=== PATIENT | female | born 1995 | race Caucasian/White ===

== ENCOUNTER 2017-02-12 16:38 | Inpatient (IN) | payer MEDICAID, OTHER ==
[~2017-02-12] VITALS: Ht 167.6 cm; Wt 61.5 kg
[~2017-02-12 16:38] MED LIST: ACET50TA PO; BUSP10TA PO; CELE10TA PO; CELE20TA PO; IBUP600T26 PO; IBUP80TA PO; PRED5PAK PO; PRENTAB13 PO; PRENTAB74 PO; SING5CHW PO; TRAZ50TA4 PO; TRAZO50TA FT; TUMS500C PO; VITAPRTA PO
[2017-02-12] MEDS ORDERED: EFFE37.527 PO (17:05)
[2017-02-12] MEDS ORDERED: MAALOX 30 ML SUSP *UDC PO PRN (17:15)
[2017-02-12] MEDS ORDERED: MOM 30ML SUSPENSION UDC PO PRN (17:15)
[2017-02-12 17:39] LABS: MEAN CORPUSCULAR HEMOGLOBIN 28.1 pg (27.0-33.0); MEAN CORPUSCULAR HGB CONC 33.9 g/dl (32.0-36.5); MEAN CORPUSCULAR VOLUME 82.8 fl (80.0-96.0); RED CELL DISTRIBUTION WIDTH 12.2 % (11.5-14.5); WHITE BLOOD COUNT 8.4 K/mm3 (4.0-10.0)
[2017-02-12 17:42] LABS: CONTROL LINE HCG INT CTR LINE PRESENT
[2017-02-12 17:48] LABS: METHADONE URINE NEGATIVE (NEGATIVE)
[2017-02-12 17:58] LABS: ALBUMIN 3.9 GM/DL (3.2-5.2); ALBUMIN/GLOBULIN RATIO 1.15 (1.00-1.93); ALKALINE PHOSPHATASE 113 U/L (45-117); ALT/SGPT 20 U/L (12-78); ANION GAP 7 MEQ/L (8-16); AST/SGOT 7 U/L (15-37); BILIRUBIN,DIRECT 0.2 MG/DL (0.0-0.2); BILIRUBIN,TOTAL 0.5 MG/DL (0.2-1.0); BLOOD UREA NITROGEN 10 MG/DL (7-18); CALCIUM LEVEL 8.6 MG/DL (8.5-10.1); CARBON DIOXIDE LEVEL 26 MEQ/L (21-32); CHLORIDE LEVEL 109 MEQ/L (98-107); CREATININE FOR GFR 0.93 MG/DL (0.55-1.02); GLOMERULAR FILTRATION RATE > 60.0 (>60); GLUCOSE, FASTING 86 MG/DL (70-105); POTASSIUM SERUM 3.6 MEQ/L (3.5-5.1); SODIUM LEVEL 142 MEQ/L (136-145); TOTAL PROTEIN 7.3 GM/DL (6.4-8.2)
[2017-02-12 18:32] VITALS: BP 119/67
[2017-02-12] MEDS ORDERED: TRAZ50TA4 PO (18:32)
[2017-02-13 06:05] VITALS: BP 88/50
--- NOTE | 2017-02-13 07:29 | ECGEPIP ---
Stationary ECG Study [facility] - ED Test Date: 2017-02-12 Pat Name: RISA ALVAREZ Department: Room: - Gender: F Lung Puller: DEYANIRA : 1995 Requested By: EVE Thurman Order Number: [id number] Reading MD: Cristin Cunha Measurements Intervals [place] Rate: 70 P: 38 LA: 146 QRS: 71 QRSD: 89 T: 48 QT: 370 QTc: 400 Interpretive Statements SINUS RHYTHM WITH MARKED SINUS ARRHYTHMIA SIMILAR 07/05/14 Electronically Signed On 02-13-2017 7:29:19 EDT by Cristin Cunha
[2017-02-13] MEDS: ACETAMINOPHEN TAB 650MG DOSE (2X325MG) PO PRN (12:43)
[2017-02-13 18:02] VITALS: BP 100/52
--- NOTE | 2017-02-13 22:08 | MHHPE ---
DATE OF ADMISSION: 02/12/2017 DATE OF EVALUATION: 02/13/2017 HISTORY OF PRESENT ILLNESS: This is a 21-year-old woman who took 10 pills of tramadol. She says that she took it from her mother and then went to see her boyfriend and took the pills while he was there, and then called her father and told him what she had done and asked the father or her boyfriend to bring her to the emergency room, but the father decided to take her to his home because he was afraid that she was going to lose custody of her children. She says she did not take the pills in front of her children. She presented yesterday to her appointment at [facility]. She told them that she was still having suicidal ideation the day before. She says she feels very overwhelmed "over everything at home." She says that she broke up with her boyfriend who is the father of her youngest [id number] daughter. They had been together for two years and they broke up this week. She says that she could not take any more, that he was always belittling her. She was on Effexor 37.5 mg daily but she said that she stopped taking it this week because the boyfriend took her medicine and would not give it to her, and I suspect it is because of the fact that she wanted to overdose. She admits that she is not good about taking her Effexor on the weekends, that she often forgets. She has a problem where she has been on a number of antidepressants, but she feels that all of them make her too tired. Actually, I have seen this patient in the clinic on 01/20/2017, at [facility]. I had actually seen her in 2013, for a few months, treating her for major depressive disorder and social anxiety, and subsequent to that, she decided that she wanted her primary care provider to prescribe the medicine for her. I had just started her on Paxil and so she was continued on Paxil all that time. She had continued the Paxil and decided to stop it at the end of last year because she felt it was making her tired. The patient admitted that she was not sleeping well. She was able to fall asleep but has difficulty staying asleep. She has two young children, a one year old and a three year old, who do wake up at night, but she says sometimes she wakes up even before the children wake up. She described having depression pretty much most of her life and tends to get worse at times. Currently, she says that her mood is about a 10/10 with the closer to 10 as the most depressed. She is feeling hopeless and helpless and having feelings of worthlessness. The patient feels all medications make her feel tired, but even before I started her on her current medication of Effexor, she was complaining of feeling tired. She was very shy in school. She tended to avoid social situations. She has only had two friends her entire lifetime. She says she still keeps contact with these friends. She does not like to go to new places. She has to spent a lot of time focusing on what she is going to say or not say. When she finds herself in those situations, she says she cannot breathe. She feels the room is getting smaller and she gets itchy all over her body. She says that she feels medications have helped her with social anxiety in the past. As far as medication goes, she has been prescribed Lexapro when she was 11, Prozac when she was 14 but she did not take either one of them for too long. She was then hospitalized at [facility] in 2013, and she was put on Paxil. She was discharged from the hospital on Celexa. When I saw her in 2013, at the clinic, I continued the Celexa all the way up to 40 mg, and she continued to be depressed and then changed the Celexa to Paxil, but then she had her primary prescribe the medicine for her. She said the primary did increase the Paxil all the way to the maximum dose, but she stopped the medicine because she thought she was doing better. She indicated that she had been prescribed BuSpar also in the past. She complained of feeling too tired on medications and so the BuSpar was also stopped. PAST PSYCHIATRIC HISTORY: As I said, she had the hospitalization in 2013, at [facility] as I have noted above. When she was 14 in 2009, she was admitted to [facility], at which point she took an overdose of Prozac. When she was 11, she did make some superficial cuts, but the behavior stopped after that. FAMILY HISTORY: The patient's mother has trouble with depression. There is no history of suicides. MEDICAL HISTORY: She has a history of migraine headaches, but she says they have not been a problem lately. SUBSTANCE ABUSE HISTORY: It seems that the patient did use cannabis pretty regularly, but she says she stopped it seven months ago. She has used other drugs at various times, to include ecstasy and Isi, but they have never been a problem, and she last used those five years ago. Alcohol has never been a problem, although she admits that occasionally she will have a few drinks. ABUSE HISTORY: There is no history of any physical or sexual abuse in the past. REVIEW OF SYSTEMS: VITAL SIGNS: Blood pressure 88/50, pulse 81, respirations 20. APPEARANCE: The patient did not appear to be in any apparent distress. NEUROMUSCULAR SYSTEM: The patient's gait was normal. There were no involuntary movements. Review of systems was completed. All other systems were reviewed and found to be negative. MENTAL STATUS EXAMINATION: She is alert and oriented times three. She is pleasant and cooperative, verbally spontaneous. Psychomotor activity is decreased. No formal thought disorder. Mood is depressed. Affect full range and appropriate. She is not psychotic, suicidal, or homicidal. She is denying any suicidal ideation now, but admits to having them yesterday. Concentration is fair. Memory intact. Insight and judgment poor. DIAGNOSES: 1. Major depressive disorder, recurrent, severe without psychotic symptoms. 2. Social anxiety. 3. Migraine headaches. TREATMENT PLAN: At this point, the patient will be further monitored for continued resolution of suicidal ideation and for stabilization of her mood. The Effexor the patient has not taken for a number of days now, so I will not restart it. I explained to the patient especially since she forgets the weekend dose, that Effexor is definitely not one antidepressant that is good for her due to it getting out of the system so quickly that it causes side effects very quickly. So I will start Prozac and so if she forgets a dose, it may not be as significant, but I discussed how important it is for her to take her medicine every day. I started her on Prozac only 10 mg daily because she seems to be extra sensitive to medication. Also, the patient will be on trazodone 50 mg at bedtime as needed for insomnia. We will plan to discharge the patient with appropriate followup when she is stable. JUDSOND
[2017-02-13] MEDS: traZODone 50 MG TAB PO PRN (22:28)
[2017-02-14 06:39] VITALS: BP 103/51
[2017-02-14] MEDS: FLUoxetine 10 MG CAP PO SCH (09:04)
[2017-02-14] MEDS: ACETAMINOPHEN TAB 650MG DOSE (2X325MG) PO PRN (13:09)
[2017-02-14 18:00] VITALS: BP 128/77
--- NOTE | 2017-02-15 02:27 | HPE ---
DATE OF ADMISSION: 02/12/2017 PRIMARY CARE PROVIDER: Katherine Krause PA-C. HISTORY OF PRESENT ILLNESS: Please refer to psychiatric history and evaluation for further details on this admission. This examination and history is intended for medical issues, which may need treatment, followup or consult on this 21-year-old female. PAST MEDICAL HISTORY: Headaches. PAST SURGICAL HISTORY: None. HOME MEDICATIONS: - trazodone 25 mg by mouth nightly - Effexor XR 37.5 mg by mouth daily ALLERGIES: No known drug allergies. LABORATORY STUDIES: CBC was normal. BUN and creatinine were 10 and 0.97. Toxicology screen was negative. SOCIAL HISTORY: Patient is from [place]. She is single. She lives with her boyfriend and a son and daughter. Ethyl alcohol (EtOH) once a month. She does not smoke cigarettes. She does not use recreational drugs. REVIEW OF SYSTEMS: 10-system review was done. She had no complaints. Was unremarkable. PHYSICAL EXAMINATION: 21-year-old cooperative female in no acute distress. Height 66 inches, weight 59.9 kg, body mass index (BMI) 21. Blood pressure 119/67, pulse 78, respirations 18, temperature 97.6. The patient is alert and oriented times three. Pupils equal and react to light. Extraocular muscles intact. Cornea and sclerae clear. Conjunctivae were normal. No facial asymmetry. Pharynx, tongue and gums pink and moist. Tongue is midline. Neck is supple without lymphadenopathy. No thyromegaly, no goiter. Carotids 2+ without bruit. Chest: Clear to auscultation without wheeze or retraction. Heart is regular. Abdomen is benign. Bowel sounds positive. Genitourinary/rectal: Not done. Extremities: No cyanosis, clubbing or edema. Peripheral pulses equal and palpable bilaterally. Cranial nerves III-XII grossly intact. IMPRESSION/PLAN: Psychiatric plan per psychiatry. No acute medical issues. Followup with primary care provider Katherine Krause on discharge.
--- NOTE | 2017-02-15 03:13 | IPN ---
DATE OF SERVICE: 02/14/2017 The patient states that she is not depressed at all. She says that she slept well with the trazodone. Denies being suicidal. She says that this is how her depression tends to go, that she can have one day where she is good and then the next day she is feeling very depressed. MENTAL STATUS EXAMINATION: This patient is alert and oriented times three. Eye contact is fair. Psychomotor activity is normal. There is no formal thought disorder noted. Mood is fine. Affect restricted, but appropriate to her mood. She is not psychotic, suicidal, homicidal. Concentration fair. Judgment is fair. TREATMENT PLAN: At this point, we will further observe and evaluate this patient for continued resolution of her suicidal ideation and continued stabilization. DIAGNOSES: 1. Major depressive disorder, recurrent, severe without psychotic symptoms. 2. Social anxiety. 3. Migraine headaches.
[2017-02-15 06:00] VITALS: BP 94/55
[2017-02-15] MEDS: FLUoxetine 10 MG CAP PO SCH (08:53)
--- NOTE | 2017-02-15 14:47 | IPN ---
DATE OF SERVICE: 02/15/2017 21-year-old female with history of depression admitted to our unit after an overdose of tramadol. SUBJECTIVE: "I've been feeling depressed." OBJECTIVE: Patient continues depressed with soft monotone speech, psychomotor retardation and restricted facial expression. Patient is able to contract for safety during her hospitalization. There is no evidence of psychotic symptoms. The patient denies side effects from the medication. MENTAL STATUS EXAMINATION: Patient is dressed in [facility]. Patient is cooperative during the interview. She has poor eye contact. Speech is soft and monotone. Mood is depressed and anxious. Affect is restricted, at time labile. No delusions or hallucinations. Memory, attention and concentration are fair. Patient is able to contract for safety during the interview. Insight and judgment is limited. ASSESSMENT: 1. Major depression. 2. Social anxiety. PLAN: 1. Increase Prozac to 20 mg by mouth every morning. 2. Continue with trazodone as needed for insomnia. 3. Continue medication management, individual and group therapy.
[2017-02-15 18:00] VITALS: BP 113/51
[2017-02-15] MEDS: traZODone 50 MG TAB PO PRN (23:01)
[2017-02-16 06:33] VITALS: BP 103/53
[2017-02-16] MEDS: FLUoxetine 20 MG CAP PO SCH (08:48)
--- NOTE | 2017-02-16 15:11 | IPN ---
DATE: 02/16/2017 A 21-year-old female with history of depression admitted after she overdosed on tramadol. SUBJECTIVE: "I feel a little better." OBJECTIVE: The patient continues depressed with sad, restricted facial expression and psychomotor retardation. The patient is interacting a little better with other patients and staff. She is motivated for treatment. She is denying side effects from the medication. No evidence of psychotic symptoms. MENTAL STATUS EXAMINATION: The patient is dressed in [facility]. The patient is cooperative during the examination. She has fair eye contact. Speech is slow and monotone. Mood is depressed and anxious but somewhat improved from yesterday. Affect is restricted. No delusions or hallucinations. Memory, attention and concentration are fair. The patient is able to contract for safety during the interview. Insight and judgment is limited. ASSESSMENT: 1. Major depression. 2. Social anxiety. 3. Suicidal ideation. PLAN: 1. Continue with Prozac 20 mg by mouth every morning. 2. Continue with trazodone as needed for insomnia. 3. Continue medication management, individual and group therapy.
[2017-02-16 18:00] VITALS: BP 121/57
[2017-02-16] MEDS: traZODone 50 MG TAB PO PRN (22:10)
[2017-02-17 05:57] VITALS: BP 121/57
[2017-02-17] MEDS: FLUoxetine 20 MG CAP PO SCH (08:40)
--- NOTE | 2017-02-17 17:47 | IPN ---
DATE: 02/17/2017 21-year-old female with history of depression admitted after she overdosed on tramadol. SUBJECTIVE: "I am feeling better". OBJECTIVE: The patient continues improving. The patient is depressed, but no longer has psychomotor retardation. Her facial expression also improved. She is interacting better with other patients and staff. She appears motivated for treatment. She denies side effects from the medication. No evidence of psychotic symptoms. MENTAL STATUS EXAM: The patient is dressed in [facility]. The patient is calm and cooperative. The patient is depressed and anxious, but significantly improved from admission. Affect is congruent with mood. No delusions or hallucinations. Memory, attention and concentration are fair. The patient denies suicidal or homicidal ideation during the interview and contracts for safety during her hospitalization. Insight and judgment are fair. ASSESSMENT: 1. Depression. 2. Suicidal ideation. 3. Social anxiety. PLAN: 1. Continue Prozac 20 mg by mouth every morning 2. Continue with trazodone as needed for insomnia. 3. Continue medication management, individual and group therapy.
[2017-02-17 18:00] VITALS: BP 103/53
[2017-02-17] MEDS: traZODone 50 MG TAB PO PRN (22:32)
[2017-02-18 06:27] VITALS: BP 114/53
[2017-02-18] MEDS: FLUoxetine 20 MG CAP PO SCH (08:56)
--- NOTE | 2017-02-18 15:43 | IPN ---
DATE: 02/18/2017 21-year-old female with history of depression admitted after she overdosed on tramadol. SUBJECTIVE: "I feel much better." OBJECTIVE: Patient continues improving. Patient is depressed but has made significant progress from admission. Her facial expression has been normalized. She no longer has psychomotor retardation. Patient continues to be motivated for treatment. She is denying side effects from the medication. No evidence of psychotic symptoms. Patient will have a family meeting today. MENTAL STATUS EXAM: The patient is dressed in [facility]. The patient is calm and cooperative. The patient is depressed but improved. Affect is congruent with mood. No delusions or hallucinations. Attention, concentration and memory are fair during the interview. Insight and judgment are fair. ASSESSMENT: 1. Depression. 2. Suicidal ideation. 3. Social anxiety. PLAN: 1. Continue with Prozac 20 mg by mouth every morning 2. Continue with trazodone as needed for insomnia. 3. Continue medication management, individual and group therapy. 4. If patient continues improving, we will discharge home tomorrow.
[2017-02-18 18:11] VITALS: BP 103/57
[2017-02-18] MEDS ORDERED: traZODone 100 MG TAB PO SCH (21:00)
[2017-02-19 07:08] VITALS: BP 96/46
[2017-02-19] MEDS: FLUoxetine 20 MG CAP PO SCH (08:41)
[2017-02-19] MEDS ORDERED: FLUO20CA9 PO (09:24)
[2017-02-19] MEDS ORDERED: TRAZ10TA PO (09:24)
--- NOTE | 2017-02-19 21:12 | MHDS ---
DATE OF ADMISSION: 02/12/2017 DATE OF DISCHARGE: 02/19/2017 HISTORY OF THE PRESENT ILLNESS: The following information is according to the initial evaluation of Dr. Suarez, her progress note and my own progress note. On 02/13/2017, Dr. Suarez wrote: This is a 21-year-old woman who took 10 pills of tramadol. She says that she took it from her mother and then went to see her boyfriend and took the pills while he was there, and then called her father and told him what she had done and asked her father or her boyfriend to bring her to the emergency department (ED) but her father decided to take her to his home because he was afraid that she was going to lose custody of her children. She says that she did not take the pills in front of her children. She presented yesterday to her appointment at [facility]. She told them that she was still having suicidal ideations. She said that she felt overwhelmed "over everything at home." She says that she broke up with her boyfriend who is the father of her youngest 1-year-old daughter. They have been together for 2 years, and they broke up this week. She says that she could not take it anymore, that he was always belittling her. She was on Effexor 37.5 mg, but she said that she stopped taking it this week because the boyfriend took her medicine and would not give it to her, and I suspect it is because of the fact that she wanted to overdose. She admitted that she is not good about taking her Effexor on the weekends, that she often forgets. She has a problem where she has been on a number of antidepressants, but she feels that all of them make her feel too tired. Actually, have seen this patient in the clinic on January 20, 2017, at [facility] and had actually seen her in 2013 for a few months during her major depressive disorder and social anxiety and subsequent to that, she decided that she wanted her primary care provider to prescribe the medicine for her. I had just started her on Paxil and so she was continued on Paxil at that time. She had continued the Paxil and decided to stop it at the end of the last year because she felt it was making her tired. The patient admitted that she was not sleeping well. She was able to fall asleep, but has difficulty staying asleep. She has two young children, a 1-year-old and a 3-year-old who do wake up at night, but she said sometimes she wakes up even before the children wake up. She described having depression pretty much most of her life and tends to get worse at times. Currently, she says that her mood is about 10/10 with the closer to 10 as the most depressed. She is feeling hopeless and helpless and having feelings of worthlessness. The patient feels all medications make her feel tired, but even before I started her on her current medication of Effexor, she was complaining of feeling tired. She was very shy in school. She tended to avoid social situations. She has only two friends her entire lifetime. She says that she still keeps contact with these friends. She does not like to go to new places. She has to spend a lot of time focusing on what she is going to say or not to say. When she finds herself in those situations, she says that she cannot breathe. She feels the room is getting smaller, and she gets itchy all over her body. She says that she feels medications have helped her with social anxiety in the past. As far as medication goes, she has been prescribed Lexapro when she was 11, Prozac when she was 14, but she did not take either one of them for too long. She was then hospitalized at [facility] in 2013, and she was put on Paxil. She was discharged on Celexa when I saw her in 2013 at the clinic. I continued the Celexa all the way up to 40 mg, and she continued to be depressed, and I changed the Celexa to Paxil but then increased the Paxil all the way up to maximum dose but she stopped the medicine because she thought she was doing better. She indicated that she had been prescribed BuSpar also in the past. She complained of feeling too tired on medication and so the BuSpar was also stopped. LABORATORY: On admission, CBC is unremarkable. CMP within normal limits, except AST of 7, anion gap of 7 and chloride of 109. TSH within normal limits. test is negative. Blood-alcohol level is negative. Urine drug screen is negative. HOSPITAL COURSE: The patient was admitted and started on Prozac 10 mg by mouth every morning. She tolerated well the medication and was subsequently increased to 20 mg by mouth daily. The patient was taking 50 mg of trazodone and complained of trouble with insomnia, so it was increased to 100 mg by mouth nightly. The patient was sleeping much better with this last dosage. The patient's mood improved slowly but steadily. One of the identified problems is the patient's support and her social anxiety. We discussed this issue, and she is insightful about it, but also reports difficulty working towards the task of socialization. At the moment of discharge, the patient is in stable condition with no auditory or visual hallucinations or delusions. The patient does not have suicidal or homicidal thoughts. A meeting was held with the patient, her parents and her boyfriend. The meeting went very well. The patient is motivated for treatment at the outpatient setting, so the patient was discharged on 02/19/2017 in stable condition. MEDICATIONS AT DISCHARGE: - trazodone 100 mg by mouth nightly - Prozac 20 mg by mouth every morning MENTAL STATUS EXAMINATION AT DISCHARGE: The patient is dressed in [facility]. The patient is cooperative. Her speech is clear, coherent with normal rate and is spontaneous. The patient has fair eye contact. Mood is slightly anxious but significantly improved from admission. Affect is appropriate and congruent with mood. The patient is oriented to time, person and situation, maintains attention and concentration correctly. Instant recall, recent and remote memory are intact. Thought processes are coherent, logical and goal directed. The patient does not have auditory or visual hallucinations. The patient does not have paranoid, persecutory, somatic, grandiose or jainism delusions. The patient is denying suicidal or homicidal ideation. Judgment and insight are fair. DISCHARGE DIAGNOSES: [place] I: Major depressive disorder. Social anxiety. [place] II: Deferred. [place] III: None acute. CONDITION AT DISCHARGE: Stable. No auditory or visual hallucinations. No delusions. No suicidal or homicidal ideation. INSTRUCTIONS TO THE PATIENT: The patient is to continue taking her medications as prescribed and followup appointment. She was advised to maintain absolute sobriety from drugs and alcohol. The patient has scheduled appointment for medication management, individual psychotherapy and primary care physician.
== END 2017-02-19 12:50 | disposition home or self-care (01) | DRG 754 ==
LOC: M ED 17:06 → M ED INP 17:07 → M PSY 18:26
PROVIDERS: ADMIT Psychiatry & Neurology Psychiatry; ATTEND Psychiatry & Neurology Psychiatry
DX: F32.9 Major depressive disorder, single episode, unspecified (principal); F41.8 Other specified anxiety disorders; R45.851 Suicidal ideations; Z79.899 Other long term (current) drug therapy

== ENCOUNTER → 2017-04-02 | Outpatient (REF) | payer OTHER ==
[~2017-04-02] MED LIST changes: +ABIL1TAB13; +AUGM875T28 PO; +EFFE37.527 PO; +FLON1SPR; +FLUO20CA19 PO; -PRENTAB13 PO; +PRENTAB20 PO; +PROZ20CA11; +TRAZ10TA PO; +TRAZ50TA11 PO; -TRAZ50TA4 PO
[2017-04-02 19:41] LABS: BASO # 0.1 K/mm3 (0.0-0.2); BASO % 1.4 % (0.0-1.0); EOS # 0.1 K/mm3 (0.0-0.50); EOS % 1.7 % (0.0-3.0); LARGE UNSTAINED CELL # 0.1 K/mm3 (0.0-0.4); LARGE UNSTAINED CELL % 1.8 % (0.0-4.0); LYMPH % 28.1 % (24.0-44.0); MEAN CORPUSCULAR HEMOGLOBIN 28.5 pg (27.0-33.0); MEAN CORPUSCULAR HGB CONC 33.7 g/dl (32.0-36.5); MEAN CORPUSCULAR VOLUME 84.4 fl (80.0-96.0); MONO # 0.3 K/mm3 (0.0-0.8); MONO % 5.1 % (0.0-5.0); NEUTROPHILS # 4.2 K/mm3 (1.8-7.7); PLATELET COUNT, AUTOMATED 298 k/mm3 (150-450); RED CELL DISTRIBUTION WIDTH 12.3 % (11.5-14.5); WHITE BLOOD COUNT 6.8 K/mm3 (4.0-10.0)
[2017-04-02 19:49] LABS: ALBUMIN 4.1 GM/DL (3.2-5.2); ALBUMIN/GLOBULIN RATIO 1.46 (1.00-1.93); ALKALINE PHOSPHATASE 111 U/L (45-117); ALT/SGPT 19 U/L (12-78); ANION GAP 8 MEQ/L (8-16); AST/SGOT 9 U/L (15-37); BILIRUBIN,TOTAL 0.5 MG/DL (0.2-1.0); BLOOD UREA NITROGEN 12 MG/DL (7-18); CALCIUM LEVEL 9.4 MG/DL (8.5-10.1); CARBON DIOXIDE LEVEL 26 MEQ/L (21-32); CHLORIDE LEVEL 105 MEQ/L (98-107); CREATININE FOR GFR 0.77 MG/DL (0.55-1.02); GLOMERULAR FILTRATION RATE > 60.0 (>60); GLUCOSE, FASTING 71 MG/DL (70-105); POTASSIUM SERUM 4.2 MEQ/L (3.5-5.1); SODIUM LEVEL 139 MEQ/L (136-145); TOTAL PROTEIN 6.9 GM/DL (6.4-8.2)
== END ==
LOC: M SFHCADAM 15:23
PROVIDERS: ATTEND Physician Assistant
DX: R11.2 Nausea with vomiting, unspecified (principal); R19.7 Diarrhea, unspecified; R10.811 Right upper quadrant abdominal tenderness

== ENCOUNTER → 2017-04-05 | Outpatient (REF) | payer OTHER | LOC: M SFHCADAM 15:35 | PROVIDERS: ATTEND Physician Assistant | DX: R19.7 Diarrhea, unspecified (principal) ==

== ENCOUNTER → 2017-04-08 | Outpatient (CLI) | payer OTHER ==
--- NOTE | 2017-04-09 03:22 | REP ---
Clinical: Right upper quadrant abdominal pain. Technique: Weiss scale ultrasound using curved array transducer. Findings: The liver and pancreas are normal in contour, size, and echogenicity without focal hepatic or pancreatic lesions identified. The gallbladder is normal without gallstones, wall thickening or pericholecystic fluid. No biliary ductal dilatation is appreciated, and the common bile duct measures 5.0 mm diameter. The right kidney is normal in reniform shape without hydronephrosis and measures 10.4 x 5.3 x 3.9 cm. No ascites. Visualized portions of the abdominal aorta normal. Impression: Normal right upper quadrant and gallbladder abdominal ultrasound. Signed by Werner Green MD 04/09/2017 03:14 A
== END ==
LOC: M RAD 08:31
PROVIDERS: ATTEND Physician Assistant
DX: R10.811 Right upper quadrant abdominal tenderness (principal)

== ENCOUNTER → 2018-01-17 | Outpatient (REF) | payer OTHER, MEDICAID ==
[2018-01-17 18:52] LABS: LUTEINIZING HORMONE 3.5 mIU/mL
[2018-01-17 18:53] LABS: FOLLICLE STIMULATING HORMONE 4.5 mIU/mL
[2018-01-17 18:53] LABS: ESTRADIOL 53.9 PG/ML
[2018-01-17 18:55] LABS: FREE T4 0.91 NG/DL (0.76-1.46)
[2018-01-19 14:16] LABS: TESTOSTERONE FREE (DIRECT) 0.9 pg/mL (0.0-4.2)
== END ==
LOC: M LABDRAW1 15:45
DX: R68.82 Decreased libido (principal)

== ENCOUNTER → 2018-03-09 | Outpatient (REF) | payer OTHER, MEDICAID ==
[2018-03-09 12:41] LABS: HEMATOCRIT 41.3 % (36.0-47.0); HEMOGLOBIN 13.3 g/dl (12.0-15.5); MEAN CORPUSCULAR HEMOGLOBIN 27.3 pg (27.0-33.0); MEAN CORPUSCULAR HGB CONC 32.2 g/dl (32.0-36.5); MEAN CORPUSCULAR VOLUME 84.8 fl (80.0-96.0); PLATELET COUNT, AUTOMATED 329 10^3/uL (150-450); RED BLOOD COUNT 4.87 10^6/uL (4.00-5.40); WHITE BLOOD COUNT 7.2 10^3/uL (4.0-10.0)
[2018-03-09 13:18] LABS: ALBUMIN 3.8 GM/DL (3.2-5.2); ALBUMIN/GLOBULIN RATIO 1.23 (1.00-1.93); ALKALINE PHOSPHATASE 114 U/L (45-117); ALT/SGPT 20 U/L (12-78); ANION GAP 6 MEQ/L (8-16); AST/SGOT 14 U/L (7-37); BILIRUBIN,TOTAL 0.5 MG/DL (0.2-1.0); BLOOD UREA NITROGEN 11 MG/DL (7-18); CALCIUM LEVEL 8.8 MG/DL (8.5-10.1); CARBON DIOXIDE LEVEL 30 MEQ/L (21-32); CHLORIDE LEVEL 107 MEQ/L (98-107); CREATININE FOR GFR 0.83 MG/DL (0.55-1.30); GLOMERULAR FILTRATION RATE > 60.0 (>60); GLUCOSE, FASTING 78 MG/DL (70-100); POTASSIUM SERUM 4.2 MEQ/L (3.5-5.1); SODIUM LEVEL 143 MEQ/L (136-145); TOTAL PROTEIN 6.9 GM/DL (6.4-8.2)
[2018-03-09 13:22] LABS: TOTAL 25(OH) VITAMIN D 30.4 NG/ML (30.0-100.0)
[2018-03-09 13:23] LABS: FOLATE > 24.0 NG/ML; VITAMIN B12 LEVEL 547 PG/ML
[2018-03-11 00:06] LABS: Lyme Disease IgG/IgM Antibodie <0.91 ISR (0.00-0.90); Lyme Disease IgM Ab Quantitati <0.80 index (0.00-0.79)
== END ==
LOC: M SFHCADAM 11:11
DX: R41.3 Other amnesia (principal); R40.0 Somnolence; R51 Headache
CPT/HCPCS: 82746

== ENCOUNTER → 2018-06-10 | Outpatient (CLI) | payer OTHER | LOC: M SLEEP HO 11:05 | DX: G47.30 Sleep apnea, unspecified (principal) | CPT/HCPCS: G0399 ==

== ENCOUNTER → 2018-08-25 | Outpatient (REF) | payer OTHER, MEDICAID ==
[2018-08-28 00:41] LABS: HERPES ZOSTER, VARICELLA IgG 1419 index (Immune >165)
[2018-08-28 00:41] LABS: HERPES ZOSTER, VARICELLA IgM <0.91 index (0.00-0.90)
== END ==
LOC: M SFHCADAM 13:44
DX: Z02.0 Encounter for examination for admission to educational institution (principal)
CPT/HCPCS: 86787

== ENCOUNTER → 2018-11-02 | Outpatient (REF) | payer OTHER ==
[~2018-11-02] MED LIST changes: +EFFE37.5 PO; -EFFE37.527 PO; +MAPA500T2 PO; +TRAZ-160 PO; -TRAZ50TA11 PO
[2018-11-08 00:06] LABS: HSV IgM TYPES 1&2 1.23 Ratio (0.00-0.90)
== END ==
LOC: M SFHCPLAZ 11:38
PROVIDERS: ATTEND Physician Assistant Medical
DX: B00.1 Herpesviral vesicular dermatitis (principal)

== ENCOUNTER → 2018-11-16 | Outpatient (REF) | payer OTHER | LOC: M LAB REF 13:30 | PROVIDERS: ATTEND Specialist | DX: Z12.4 Encounter for screening for malignant neoplasm of cervix (principal) ==

== ENCOUNTER → 2018-12-13 | Outpatient (REF) | payer OTHER ==
[2018-12-13 14:09] LABS: ALBUMIN 3.4 GM/DL (3.2-5.2); ALT/SGPT 28 U/L (12-78); BILIRUBIN,TOTAL 0.3 MG/DL (0.2-1.0); BLOOD UREA NITROGEN 11 MG/DL (7-18); CALCIUM LEVEL 9.1 MG/DL (8.5-10.1); CARBON DIOXIDE LEVEL 28 MEQ/L (21-32); CHLORIDE LEVEL 107 MEQ/L (98-107); CREATININE FOR GFR 0.72 MG/DL (0.55-1.30); GLOMERULAR FILTRATION RATE > 60.0 (>60); GLUCOSE, FASTING 57 MG/DL (70-100); POTASSIUM SERUM 4.5 MEQ/L (3.5-5.1); SODIUM LEVEL 140 MEQ/L (136-145); TOTAL PROTEIN 6.6 GM/DL (6.4-8.2)
[2018-12-13 14:16] LABS: TOTAL 25(OH) VITAMIN D 24.9 NG/ML (30.0-100.0)
== END ==
LOC: M SFHCPLAZ 11:14
PROVIDERS: ATTEND Physician Assistant Medical
DX: E55.9 Vitamin D deficiency, unspecified (principal)

== ENCOUNTER → 2019-04-17 | Outpatient (REF) | payer OTHER ==
[~2019-04-17] MED LIST changes: -ACET50TA PO; +MAPA500T17 PO; -TRAZ-160 PO; +TRAZ-252 PO; +TRAZ1TAB6 FT; -TRAZO50TA FT
[2019-04-17 18:05] LABS: APPEARANCE, URINE CLEAR (CLEAR); BACTERIA, URINE AUTO NEGATIVE (NEGATIVE); BILIRUBIN, URINE AUTO NEGATIVE (NEGATIVE); BLOOD, URINE BLOOD NEGATIVE (NEGATIVE); COLOR, URINE YELLOW (YELLOW); GLUCOSE, URINE (UA) AUTO NEGATIVE (NEGATIVE); KETONE, URINE AUTO NEGATIVE (NEGATIVE); LEUKOCYTE ESTERASE, URINE AUTO NEGATIVE (NEGATIVE); MUCUS, URINE SMALL (NEGATIVE); NITRITE, URINE AUTO NEGATIVE (NEGATIVE); PROTEIN, URINE AUTO NEGATIVE (NEGATIVE); RBC, URINE AUTO 2 /HPF (0-3); SPECIFIC GRAVITY URINE AUTO 1.013 (1.002-1.035); SQUAMOUS EPITHELIAL CELL UR AU 0 /HPF (0-6); UROBILINOGEN, URINE AUTO 0.2 mg/dL (0.0-2.0); WBC, URINE AUTO 1 /HPF (0-3)
== END ==
LOC: M SFHCPLAZ 15:35
PROVIDERS: ATTEND Physician Assistant Medical
DX: R10.9 Unspecified abdominal pain (principal)

== ENCOUNTER → 2019-05-18 | Outpatient (CLI) | payer OTHER ==
[2019-05-18 14:35] LABS: ALBUMIN 3.7 GM/DL (3.2-5.2); ALT/SGPT 17 U/L (12-78); BILIRUBIN,TOTAL 0.6 MG/DL (0.2-1.0); BLOOD UREA NITROGEN 13 MG/DL (7-18); CALCIUM LEVEL 9.3 MG/DL (8.5-10.1); CARBON DIOXIDE LEVEL 28 MEQ/L (21-32); CHLORIDE LEVEL 107 MEQ/L (98-107); CREATININE FOR GFR 0.93 MG/DL (0.55-1.30); FREE T4 1.02 NG/DL (0.76-1.46); GLOMERULAR FILTRATION RATE > 60.0 (>60); GLUCOSE, FASTING 73 MG/DL (70-100); POTASSIUM SERUM 4.2 MEQ/L (3.5-5.1); SODIUM LEVEL 139 MEQ/L (136-145); TOTAL PROTEIN 6.8 GM/DL (6.4-8.2)
[2019-05-18 14:36] LABS: PTH INTACT 47.4 PG/ML (18.5-88.0); TOTAL 25(OH) VITAMIN D 35.2 NG/ML (30.0-100.0)
== END ==
LOC: M WUC 11:27
PROVIDERS: ATTEND Physician Assistant Medical
DX: F33.1 Major depressive disorder, recurrent, moderate (principal); E55.9 Vitamin D deficiency, unspecified

== ENCOUNTER → 2019-10-11 | Outpatient (CLI) | payer OTHER ==
[~2019-10-11] MED LIST changes: -TRAZ10TA PO; +TRAZ1TAB12 PO
--- NOTE | 2019-10-12 01:42 | REP ---
Clinical: Trauma. Contusion. Technique: AP and lateral views of the right forearm. Findings: No acute fracture or dislocation. Skeletal structures, joint spaces, and surrounding soft tissues appear normal. No subcutaneous emphysema or foreign body. Impression: Normal right forearm radiographs. Electronically Signed by Werner Green MD 10/12/2019 01:34 A
== END ==
LOC: M WUC 08:46
PROVIDERS: ATTEND Physician Assistant
DX: S50.11XA Contusion of right forearm, initial encounter (principal); X58.XXXA Exposure to other specified factors, initial encounter; Y92.89 Other specified places as the place of occurrence of the external cause

== ENCOUNTER → 2019-12-05 | Outpatient (REF) | payer OTHER ==
[~2019-12-05] MED LIST changes: -FLUO20CA19 PO; +FLUO20CA22 PO
[2019-12-05 17:40] LABS: APPEARANCE, URINE HAZY (CLEAR); BACTERIA, URINE AUTO 1+ (NEGATIVE); BILIRUBIN, URINE AUTO NEGATIVE (NEGATIVE); BLOOD, URINE BLOOD NEGATIVE (NEGATIVE); COLOR, URINE YELLOW (YELLOW); GLUCOSE, URINE (UA) AUTO NEGATIVE (NEGATIVE); KETONE, URINE AUTO NEGATIVE (NEGATIVE); LEUKOCYTE ESTERASE, URINE AUTO TRACE (NEGATIVE); MUCUS, URINE SMALL (NEGATIVE); NITRITE, URINE AUTO NEGATIVE (NEGATIVE); PROTEIN, URINE AUTO NEGATIVE (NEGATIVE); RBC, URINE AUTO 2 /HPF (0-3); SPECIFIC GRAVITY URINE AUTO 1.016 (1.002-1.035); SQUAMOUS EPITHELIAL CELL UR AU 7 /HPF (0-6); UROBILINOGEN, URINE AUTO 0.2 mg/dL (0.0-2.0); WBC, URINE AUTO 4 /HPF (0-3)
== END ==
LOC: M SFHCPLAZ 17:01
PROVIDERS: ATTEND Physician Assistant Medical
DX: R30.0 Dysuria (principal)

== ENCOUNTER → 2020-01-08 | Outpatient (CLI) | payer OTHER ==
--- NOTE | 2020-01-08 14:46 | REP ---
PELVIC ULTRASOUND: Real-time sonographic evaluation of pelvis performed. Transabdominal and endovaginal technique are utilized. Bladder measures 8.4 x 5.7 x 3.0 cm. Uterus measures 8.0 x 3.5 x 4.3 cm. Endometrial thickness is 4 mm. Uterus is retroverted. IUD is seen in apparently good position within the endometrial canal. Ovaries are normal in size and echotexture, right ovary measuring 4.5 x 1.9 x 2.8 cm and left ovary 2.8 x 2.9 x 3.0 cm. There is no adnexal mass or free fluid. There is no evidence of ovarian torsion with duplex Doppler evaluation. IMPRESSION: IUD appears to be in good position within the endometrial canal. Otherwise, negative pelvic ultrasound. Electronically Signed by Dino Weiss MD 01/09/2020 10:07 A
== END ==
LOC: M RAD 11:04
PROVIDERS: ATTEND Physician Assistant Medical
DX: R30.0 Dysuria (principal)

== ENCOUNTER → 2020-02-18 | Outpatient (CLI) | payer OTHER ==
--- NOTE | 2020-02-24 00:10 | SLEEPHOME ---
DATE OF PROCEDURE: 02/18/2020 ORDERED BY: Dr. Mendez Diagnostic home sleep testing was performed due to concern for the obstructive sleep apnea syndrome in this patient with a history of nonrestorative sleep and excessive somnolence. For testing a nocturnal T3 respiratory monitoring device was used. Continuous record was made of pulse, oxygen saturation, airflow, chest, abdominal strain and body position. 9 hours and 59 minutes of data were reviewed. There were 6 hours and 14 minutes marked as time in bed. During the interval marked time in bed, there were only 13 respiratory events identified of 10 seconds in duration or greater for a respiratory event index of 2.1. The events were obstructive and hypopneic. Baseline pulse rate 54 beats per minute, pulse rate ranged 69-89. Baseline saturation 96%. Saturations never fell below 93%. Testing was performed in both the supine and nonsupine positions. IMPRESSION: Borderline diagnostic home sleep testing with some respiratory patterning and snoring. RECOMMENDATIONS: The frequency of respiratory events does not meet that which is generally associated with the obstructive sleep apnea syndrome. If the patient's sleep symptoms persist, retesting or more accurate study in the sleep disorder center may be useful.
== END ==
LOC: M SLEEP HO 10:00
PROVIDERS: ATTEND Internal Medicine Pulmonary Disease
DX: R06.83 Snoring (principal)

== ENCOUNTER → 2020-04-16 | Outpatient (REF) | payer OTHER ==
[2020-05-22 11:53] LABS: CHLAMYDIA DNA AMPLIFICATION NEGATIVE (NEGATIVE); GC DNA AMPLIFICATION NEGATIVE (NEGATIVE)
== END ==
LOC: M SFHCWAGY 09:40
PROVIDERS: ATTEND Specialist
DX: Z12.4 Encounter for screening for malignant neoplasm of cervix (principal)

== ENCOUNTER → 2020-07-01 | Outpatient (CLI) | payer OTHER ==
--- NOTE | 2020-07-04 08:49 | SLEEPCENT ---
DATE: 07/01/2020 ORDERED BY: Dr. Gloria Mendez Nocturnal polysomnography with multiple sleep latency testing was performed for evaluation of sleep physiology and excessive somnolence. For the nighttime portion of the study, seven hours and 52 minutes of data were reviewed. There were 432 minutes of sleep identified. Sleep latency was normal at 20.5 minutes. REM latency was normal at 124 minutes. Sleep architecture was good with four REM cycles. Overall sleep efficiency was 92.7%. The electrocardiogram showed a sinus rhythm with an average heart rate of 70 beats per minute. Rate ranged 50-95. EEG showed normal waveforms for wake and sleep. There was only 1 respiratory event identified of 10 seconds in duration or greater for an apnea-hypopnea index of 0.1. Some snoring was noted, worse in the supine and left-sided postures. Arousals from respiratory events when arousals from snoring were included occurred only 0.3 times per hour, and there were no oxygen desaturations below 90%. There was some minor intermittent limb activity, one train of 30 events with a limb movement arousal index of 4.2. Nocturnal polysomnography was followed by multiple sleep latency testing. Four nap opportunities were offered at two hour intervals. Sleep was appreciated on 4 out of 4 nap opportunities. No REM sleep was appreciated during the naps. The patients mean sleep latency was 8.4. IMPRESSION: Normal nocturnal polysomnography with snoring. Multiple sleep latency testing revealing a mean sleep latency of 8.4 minutes which is in the anthony zone for excessive somnolence. MTDD
== END ==
LOC: M SLEEP 20:00
PROVIDERS: ATTEND Internal Medicine Pulmonary Disease
DX: G47.30 Sleep apnea, unspecified (principal)

== ENCOUNTER → 2020-07-04 | Outpatient (REF) | payer OTHER | LOC: M SFHCWAGY 10:33 | PROVIDERS: ATTEND Specialist | DX: R87.619 Unspecified abnormal cytological findings in specimens from cervix uteri (principal) ==

== ENCOUNTER → 2020-07-30 | Outpatient (REF) | payer OTHER ==
[2020-07-31 12:43] LABS: BASO # 0.1 10^3/uL (0.0-0.2); BASO % 1.1 % (0.0-1.0); EOS # 0.2 10^3/uL (0.0-0.5); EOS % 2.2 % (0.0-3.0); HEMATOCRIT 42.6 % (36.0-47.0); HEMOGLOBIN 13.9 g/dl (12.0-15.5); LYMPH % 20.7 % (24.0-44.0); MEAN CORPUSCULAR HEMOGLOBIN 29.5 pg (27.0-33.0); MEAN CORPUSCULAR HGB CONC 32.6 g/dl (32.0-36.5); MEAN CORPUSCULAR VOLUME 90.4 fl (80.0-96.0); MONO # 0.7 10^3/uL (0.0-0.8); MONO % 6.9 % (0.0-5.0); NEUTROPHILS # 6.7 10^3/uL (1.5-8.5); NEUTROPHILS % 68.8 % (36.0-66.0); PLATELET COUNT, AUTOMATED 358 10^3/uL (150-450); RED BLOOD COUNT 4.71 10^6/uL (4.00-5.40); WHITE BLOOD COUNT 9.7 10^3/uL (4.0-10.0)
[2020-07-31 13:24] LABS: TOTAL 25(OH) VITAMIN D 34.8 NG/ML (30.0-100.0)
[2020-07-31 13:30] LABS: ALBUMIN 3.7 GM/DL (3.2-5.2); ALT/SGPT 17 U/L (12-78); BILIRUBIN,TOTAL 0.3 MG/DL (0.2-1.0); BLOOD UREA NITROGEN 15 MG/DL (7-18); CALCIUM LEVEL 9.5 MG/DL (8.5-10.1); CARBON DIOXIDE LEVEL 27 MEQ/L (21-32); CHLORIDE LEVEL 105 MEQ/L (98-107); CREATININE FOR GFR 1.01 MG/DL (0.55-1.30); FREE T4 1.04 NG/DL (0.76-1.46); GLOMERULAR FILTRATION RATE > 60.0 (>60); GLUCOSE, FASTING 81 MG/DL (70-100); MAGNESIUM LEVEL 2.3 MG/DL (1.8-2.4); POTASSIUM SERUM 5.2 MEQ/L (3.5-5.1); SODIUM LEVEL 138 MEQ/L (136-145); THYROID STIMULATING HORMONE 0.828 uIU/ML (0.358-3.740); TOTAL PROTEIN 7.1 GM/DL (6.4-8.2)
== END ==
LOC: M SFHCCLAY 14:36
PROVIDERS: ATTEND Nurse Practitioner Family
DX: R51.9 Headache, unspecified (principal)

== ENCOUNTER → 2021-04-30 | Outpatient (REF) | payer OTHER ==
[2021-04-30 15:23] LABS: GC DNA AMPLIFICATION NEGATIVE (NEGATIVE)
== END ==
LOC: M SFHCCLAY 09:04
PROVIDERS: ATTEND Physician Assistant
DX: R30.0 Dysuria (principal)

== ENCOUNTER → 2021-05-13 | Outpatient (REF) | payer OTHER | LOC: M SFHCWAGY 18:47 | PROVIDERS: ATTEND Specialist | DX: N87.1 Moderate cervical dysplasia (principal) ==

== ENCOUNTER → 2021-07-29 | Outpatient (CLI) | payer OTHER ==
--- NOTE | 2021-07-29 14:55 | REP ---
INDICATION: M54.50 LOW KWABENA PAIN COMPARISON: None. TECHNIQUE: AP, lateral, flexion/extension, bilateral oblique, and coned-down views. FINDINGS: Alignment and lordosis is maintained. The vertebral bodies including transverse process and spinous processes are intact and normal. There is no evidence for acute fracture / compression injury or subluxation. No evidence for spondylolysis or spondylolisthesis. No significant degenerative change is noted. IMPRESSION: Normal lumbosacral spine radiograph series. <Electronically signed by Werner Green > 07/29/21 [id number]
== END ==
LOC: M CLY 14:22
PROVIDERS: ATTEND Nurse Practitioner Family
DX: M54.50 Low back pain, unspecified (principal)

== ENCOUNTER → 2023-01-29 | Outpatient (REF) | payer OTHER ==
[2023-01-29 18:32] LABS: AMORPHOUS SEDIMENT SMALL (NEGATIVE); APPEARANCE, URINE TURBID (CLEAR); BACTERIA, URINE AUTO 1+ (NEGATIVE); BILIRUBIN, URINE AUTO NEGATIVE (NEGATIVE); BLOOD, URINE BLOOD NEGATIVE (NEGATIVE); CALCIUM OXALATE CRYSTALS SMALL; COLOR, URINE AMBER (YELLOW); GLUCOSE, URINE (UA) AUTO NEGATIVE (NEGATIVE); KETONE, URINE AUTO NEGATIVE (NEGATIVE); LEUKOCYTE ESTERASE, URINE AUTO TRACE (NEGATIVE); MUCUS, URINE SMALL (NEGATIVE); NITRITE, URINE AUTO NEGATIVE (NEGATIVE); PROTEIN, URINE AUTO NEGATIVE (NEGATIVE); RBC, URINE AUTO 1 /HPF (0-3); SPECIFIC GRAVITY URINE AUTO 1.021 (1.002-1.035); SQUAMOUS EPITHELIAL CELL UR AU 1 /HPF (0-6); UROBILINOGEN, URINE AUTO 0.2 mg/dL (0.0-2.0); WBC, URINE AUTO 3 /HPF (0-3)
== END ==
LOC: M SFHCCLAY 16:49
PROVIDERS: ATTEND Physician Assistant Medical
DX: R35.0 Frequency of micturition (principal)

== ENCOUNTER → 2023-04-13 | Outpatient (REF) | payer OTHER | LOC: M SFHCCLAY 10:07 | PROVIDERS: ATTEND Nurse Practitioner Family | DX: Z53.9 Procedure and treatment not carried out, unspecified reason (principal) ==

== ENCOUNTER → 2023-04-16 | Outpatient (REF) | payer OTHER ==
[2023-04-16 17:43] LABS: BASO # 0.1 10^3/uL (0.0-0.2); EOS # 0.2 10^3/uL (0.0-0.5); LYMPH % 19.3 % (24.0-44.0); MEAN CORPUSCULAR HEMOGLOBIN 28.7 pg (27.0-33.0); MEAN CORPUSCULAR HGB CONC 32.5 g/dl (32.0-36.5); MEAN CORPUSCULAR VOLUME 88.3 fl (80.0-96.0); MONO # 0.7 10^3/uL (0.0-0.8); MONO % 6.7 % (2.0-8.0); NEUTROPHILS # 7.3 10^3/uL (1.5-8.5); NEUTROPHILS % 70.7 % (36.0-66.0); PLATELET COUNT, AUTOMATED 392 10^3/uL (150-450); RED BLOOD COUNT 4.53 10^6/uL (4.00-5.40); WHITE BLOOD COUNT 10.4 10^3/uL (4.0-10.0)
[2023-04-16 17:58] LABS: THYROID STIMULATING HORMONE 1.185 uIU/ML (0.55-4.78)
[2023-04-16 17:59] LABS: TOTAL 25(OH) VITAMIN D 41.9 NG/ML (20.0-100.0)
[2023-04-16 18:00] LABS: IRON (FE) 44 UG/DL (50-170)
[2023-04-16 18:01] LABS: FREE T4 1.01 NG/DL (0.89-1.76); PERCENT SATURATION 13.2 % (13.2-45.0); TOTAL IRON BINDING CAPACITY 333 UG/DL (250-425)
[2023-04-16 18:02] LABS: ALBUMIN 3.5 G/DL (3.2-5.2); ALKALINE PHOSPHATASE 122 U/L (46-116); ALT/SGPT 16 U/L (7.0-40); AST/SGOT < 8 U/L (<34); BILIRUBIN,TOTAL 0.3 MG/DL (0.3-1.2); BLOOD UREA NITROGEN 8 MG/DL (9-23); CARBON DIOXIDE LEVEL 26 MMOL/L (20-31); CHLORIDE LEVEL 106 MMOL/L (98-107); CREATININE FOR GFR 1.09 MG/DL (0.55-1.30); GLOMERULAR FILTRATION RATE > 60.0 (>60); GLUCOSE, FASTING 65 MG/DL (60-100); POTASSIUM SERUM 4.2 MMOL/L (3.5-5.1); SODIUM LEVEL 141 MMOL/L (136-145); TOTAL PROTEIN 6.4 G/DL (5.7-8.2)
[2023-04-16 18:42] LABS: HEMOGLOBIN A1c 4.9 % (4.0-6.0)
== END ==
LOC: M SFHCCLAY 15:04
PROVIDERS: ATTEND Nurse Practitioner Family
DX: E55.9 Vitamin D deficiency, unspecified (principal); F32.9 Major depressive disorder, single episode, unspecified; G89.29 Other chronic pain; R51.9 Headache, unspecified; R53.83 Other fatigue

== ENCOUNTER → 2024-05-25 | Outpatient (REF) | payer OTHER ==
[~2024-05-25] MED LIST changes: -EFFE37.5 PO; +EFFE37.52 PO; +FLUO-365 PO; -FLUO20CA22 PO
[2024-05-25 18:18] LABS: BASO # 0.2 10^3/uL (0.0-0.2); BASO % 2.2 % (0.0-1.0); EOS # 0.2 10^3/uL (0.0-0.5); EOS % 2.8 % (0.0-3.0); HEMATOCRIT 46.3 % (36.0-47.0); LYMPH # 2.1 10^3/uL (1.5-5.0); LYMPH % 24.6 % (24.0-44.0); MEAN CORPUSCULAR HGB CONC 32.4 g/dl (32.0-36.5); MEAN CORPUSCULAR VOLUME 89.4 fl (80.0-96.0); MONO # 0.6 10^3/uL (0.0-0.8); MONO % 7.5 % (2.0-8.0); NEUTROPHILS # 5.2 10^3/uL (1.5-8.5); NEUTROPHILS % 62.5 % (36.0-66.0); PLATELET COUNT, AUTOMATED 403 10^3/uL (150-450); RED BLOOD COUNT 5.18 10^6/uL (4.00-5.40); WHITE BLOOD COUNT 8.4 10^3/uL (4.0-10.0)
[2024-05-25 18:44] LABS: ALBUMIN 3.9 G/DL (3.2-5.2); ALKALINE PHOSPHATASE 134 U/L (46-116); ALT/SGPT 18 U/L (7.0-40); AST/SGOT < 8 U/L (<34); BILIRUBIN,TOTAL 0.5 MG/DL (0.3-1.2); BLOOD UREA NITROGEN 8 MG/DL (9-23); CALCIUM LEVEL 9.7 MG/DL (8.5-10.1); CARBON DIOXIDE LEVEL 29 MMOL/L (20-31); CHLORIDE LEVEL 108 MMOL/L (98-107); CREATININE FOR GFR 0.81 MG/DL (0.55-1.30); GLOMERULAR FILTRATION RATE > 60.0 (>60); GLUCOSE, FASTING 80 MG/DL (60-100); MAGNESIUM LEVEL 2.1 MG/DL (1.8-2.4); POTASSIUM SERUM 4.8 MMOL/L (3.5-5.1); SODIUM LEVEL 137 MMOL/L (136-145); THYROID STIMULATING HORMONE 1.221 uIU/ML (0.55-4.78); TOTAL PROTEIN 6.9 G/DL (5.7-8.2)
[2024-05-25 18:46] LABS: FREE T4 1.18 NG/DL (0.89-1.76)
== END ==
LOC: M SFHCCLAY 09:18
PROVIDERS: ATTEND Nurse Practitioner Family
DX: F32.9 Major depressive disorder, single episode, unspecified (principal); E55.9 Vitamin D deficiency, unspecified; G89.29 Other chronic pain; R51.9 Headache, unspecified; R53.83 Other fatigue

== ENCOUNTER → 2024-06-07 | Outpatient (REF) | payer OTHER | LOC: M SFHCCLAY 10:48 | PROVIDERS: ATTEND Nurse Practitioner Family | DX: R30.0 Dysuria (principal) ==

== ENCOUNTER → 2024-06-21 | Outpatient (REF) | payer OTHER | LOC: M SFHCWAGY 17:41 | PROVIDERS: ATTEND Specialist | DX: Z01.419 Encounter for gynecological examination (general) (routine) without abnormal findings (principal) ==